=== PATIENT | female | born 1965 | race American Indian/Alaskan Native ===

== ENCOUNTER 2021-05-30 06:39 | Observation (INO) | payer BC ==
[2021-05-30] MEDS ORDERED: SODIUM CHLORIDE 0.9% 500 ML 500 ML IV SCH (07:00)
[2021-05-30 07:31] LABS: Basophils # (Auto) 0.1 K/mm3 (0.0-0.1); Basophils % (Auto) 0.8 % (0.0-1.8); Eosinophils # (Auto) 0.2 K/mm3 (0.0-0.4); Eosinophils % (Auto) 1.9 % (0.0-4.3); Hematocrit 42.4 % (30.3-42.9); Hemoglobin 14.7 gm/dl (10.1-14.3); Lymphocytes # (Auto) 3.1 K/mm3 (1.2-5.4); Lymphocytes % (Auto) 27.2 % (13.4-35.0); Mean Corpuscular HGB Conc 35 % (30-34); Mean Corpuscular Volume 88 fl (79-97); Monocytes % (Auto) 8.5 % (0.0-7.3); Platelet Count 273 K/mm3 (140-440); Red Blood Count 4.84 M/mm3 (3.65-5.03)
[2021-05-30 07:47] LABS: INR 1.06 (0.87-1.13); Partial Thromboplastin Time 34.8 Sec. (24.2-36.6)
[2021-05-30 07:54] LABS: BUN/Creatinine Ratio 11; Blood Urea Nitrogen 10 mg/dL (7-17); Calcium 9.8 mg/dL (8.4-10.2); Hemolysis Index 116
[2021-05-30] MEDS ORDERED: LIDOCAINE (1%) 10 MG/1 ML VIAL 20 ML MDV ONE (08:25)
[2021-05-30] MEDS ORDERED: HEPARIN/NS 5000 UNIT/500ML 1,000 ML IR ONE (08:25)
[2021-05-30] MEDS ORDERED: MIDAZOLAM 5 MG/5 ML INJ MDV IV ONE (08:26)
[2021-05-30] MEDS ORDERED: VERAPAMIL 5 MG/2 ML INJ ONE (08:27)
[2021-05-30] MEDS ORDERED: HEPARIN/NS 5000 UNIT/500ML 500 ML IR ONE (08:37)
[2021-05-30] MEDS: MIDAZOLAM 2 MG/2 ML INJ ONE ×2 (08:55→09:35)
[2021-05-30] MEDS: fentaNYL 100 MCG/2 ML INJ ONE ×2 (08:55→09:35)
[2021-05-30] MEDS: HEPARIN 10,000 UNITS/10 ML VIAL ONE ×2 (09:11→09:30)
[2021-05-30] MEDS ORDERED: TICAGRELOR 90 MG TAB ONE (10:00)
--- NOTE | 2021-05-30 10:48 | Short Stay Summary ---
<LICO BERG - Last Filed: 05/30/21 15:12> Short Stay Documentation Date of service: 05/30/21 - History H&P: obtained from office - Allergies and Medications Current Medications: Allergies No Known Allergies Allergy (Verified 05/30/21 06:57) Home Medications Medication Instructions Recorded Confirmed Last Taken Type Aspirin [Aspirin BABY CHEW TAB] 81 mg PO QDAY 05/30/21 05/30/21 05/30/21 History 0700 AtorvaSTATin [Lipitor] 10 mg PO QHS 05/30/21 05/30/21 05/29/21 History 1 tab Chlorthalidone 50 mg PO DAILY 05/30/21 05/30/21 05/29/21 History 1 tab ISOSORBIDE MONOnitrate [Imdur ER] 30 mg PO DAILY 05/30/21 05/30/21 05/29/21 History 1 tab Omeprazole 40 mg PO DAILY 05/30/21 05/30/21 05/29/21 History 1 tab Potassium Chloride [Klor-Con 8] 20 meq PO QDAY 05/30/21 05/30/21 05/29/21 History 1 tab carvediloL [Coreg] 3.125 mg PO BID 05/30/21 05/30/21 05/29/21 History 2 tab Active Medications Sodium Chloride (Nacl 0.9% 500 Ml) 500 mls @ 50 mls/hr IV DIRECT CAROLYN Stop: 05/30/21 16:59 Last Admin: 05/30/21 08:16 Dose: 50 mls/hr Documented by: - Physical exam Integumentary: other (Right radial access site inspected no bleeding or hematoma noted Telfa Tegaderm in place) - Brief post op/procedure progress note Date of procedure: 05/30/21 Pre-op diagnosis: Unstable angina Post-op diagnosis: other (Coronary artery disease s/p YARELIS stent of LAD) - Disposition Condition at discharge: Good - Discharge Diagnoses (1) Coronary artery disease Status: Acute (2) Stented coronary artery Status: Acute Short Stay Discharge Plan Activity: advance as tolerated Diet: low fat, low cholesterol, low salt Wound: open to air, keep clean and dry, per your surgeon's advice Follow up with: KRISTA BUCK MD [Primary Care Provider] - 7 Days SANDHYA STANLEY MD [Staff Physician] - 7 Days Prescriptions: AtorvaSTATin [Lipitor] 80 mg PO QHS #90 tab Ticagrelor [Brilinta] 90 mg PO BID #180 tablet <HUGO IBRAHIM - Last Filed: 05/31/21 13:06> Short Stay Documentation - Allergies and Medications Current Medications: Allergies No Known Allergies Allergy (Verified 05/30/21 06:57) Home Medications Medication Instructions Recorded Confirmed Last Taken Type Aspirin [Aspirin BABY CHEW TAB] 81 mg PO QDAY 05/30/21 05/30/21 05/30/21 History 0700 AtorvaSTATin [Lipitor] 10 mg PO QHS 05/30/21 05/30/21 05/29/21 History 1 tab AtorvaSTATin [Lipitor] 80 mg PO QHS #90 tab 05/30/21 Unknown Rx Chlorthalidone 50 mg PO DAILY 05/30/21 05/30/21 05/29/21 History 1 tab ISOSORBIDE MONOnitrate [Imdur ER] 30 mg PO DAILY 05/30/21 05/30/21 05/29/21 History 1 tab Omeprazole 40 mg PO DAILY 05/30/21 05/30/21 05/29/21 History 1 tab Potassium Chloride [Klor-Con 8] 20 meq PO QDAY 05/30/21 05/30/21 05/29/21 History 1 tab Ticagrelor [Brilinta] 90 mg PO BID #180 tablet 05/30/21 Unknown Rx carvediloL [Coreg] 3.125 mg PO BID 05/30/21 05/30/21 05/29/21 History 2 tab Active Medications Hydrocodone Bitart/Acetaminophen (Hydrocodone/Acetaminophen 5-325 Mg Tab) 1 each PO Q6H PRN PRN Reason: Pain, Moderate (4-6) Aspirin (Aspirin 81 Mg Tab Chew) 81 mg PO QDAY [facility] Last Admin: 05/31/21 09:34 Dose: 81 mg Documented by: Enoxaparin Sodium (Enoxaparin 40 Mg/0.4 Ml Inj) 40 mg SUB-Q Q12HR [facility] Last Admin: 05/31/21 09:34 Dose: 40 mg Documented by: Morphine Sulfate (Morphine 2 Mg/1 Ml Inj) 2 mg IV Q5MIN PRN PRN Reason: Chest Pain unrelieved by NTG Ticagrelor (Ticagrelor 90 Mg Tab) 90 mg PO BID [facility] Last Admin: 05/31/21 09:34 Dose: 90 mg Documented by: Tramadol HCl (Tramadol 50 Mg Tab) 50 mg PO Q4H PRN PRN Reason: Pain, Mild (1-3)
--- NOTE | 2021-05-30 10:53 | Cardiac Catherization Report ---
DATE OF SERVICE: 05/30/2021 INDICATION: The patient is a 55-year-old female with history of longstanding hypertension with recent onset of angina symptoms with exertion, was started on medication with some improvement in the symptoms, underwent pharmacological stress test, which showed a severe reversible defect in the anteroseptal area, considering her symptoms and severe abnormalities noted on the stress nuclear imaging, the patient was scheduled for cardiac catheterization and possible intervention. The patient is aware of the procedure, potential complications, and alternatives of therapy available. DESCRIPTION OF PROCEDURE: The patient was brought to the catheterization laboratory in a fasting condition. The patient is aware of the procedure, potential complications. The patient was evaluated for moderate sedation and received IV Versed and fentanyl. Subsequently, the patient was prepared in standard fashion. Right radial artery was prepared. Local anesthesia was given in the right wrist area and right radial artery puncture was made using 21-gauge arterial puncture needle. A 5-Swazi slender sheath was used. The patient already received IV Versed and fentanyl for sedation. Received 3000 units of intravenous heparin and 5 mg of intra-arterial verapamil. Subsequently, using 5-Swazi multipurpose catheter, angiograms of the left coronary artery were obtained in multiple views. A left ventriculogram was performed. There is suggestion of significant mitral regurgitation. Hence, a left ventriculogram was performed using pigtail and a power injector. Only mild mitral regurgitation was noted. Subsequently, using JR4 catheter, angiograms of the right coronary artery were obtained. The patient was noted to have severe tight proximal to mid LAD lesion. Hence procedure was converted into the interventional procedure. Following findings were noted on the diagnostic cardiac catheterization. Aortic pressure is 162/91. Left ventricular pressure 162/24. No gradient across the aortic valve. Estimated ejection fraction 55%. Left ventriculogram done in EDMONDS projection using power injector showed normal-sized left ventricle with normal contractility. There is only 1+ mitral regurgitation noted. Ejection fraction was estimated to be 55%. Right coronary artery nondominant vessel,arises normally, is angiographically smooth and normal. Left coronary artery arises normally from left coronary cusp. The left main is very short, immediately dividing into LAD and circumflex branches. LAD in the proximal part shows a very severe lesion, extending into the mid part at the origin of a small to medium size diagonal branch. There is a sluggish flow in the LAD, suggestive of GERBER 2 flow. Except for this proximal/mid LAD lesion, rest of the LAD curving around the apex without significant disease. Diagonal branch itself does not appear to have significant disease. Circumflex artery, codominant vessel with multiple marginal branches shows no significant coronary disease angiographically.Marginal branches appeared to be tortuous, but smooth and normal. COLLATERALS: None. FINAL IMPRESSION: 1. Normal-sized left ventricle with mild mitral regurgitation and severe proximal to mid LAD lesion with sluggish flow suggestive of GERBER 2 flow. Rest of the coronaries without significant disease. Considering her symptomatology and severity of the lesion, it was felt that the patient could benefit from intervention of the LAD. It was converted to interventional procedure. Intervention of the proximal to mid LAD: The patient has indwelling 5-Swazi slender sheath in the right wrist. The patient was given IV heparin as anticoagulant. Extra dose of Versed and fentanyl were given for sedation. Initially, EBU 3.5 guide catheter was advanced and engaged the left coronary artery. However, after advancing the guidewire into the LAD, could not get good support. Hence system was removed and a 6-Swazi JL3.5 guiding catheter was engaged in the left coronary artery. Using a Constantine 0.014 inch guidewire was advanced into the distal LAD without difficulty. Lesion initially was dilated with a 2.75 x 12 mm Euphora balloon up to 8 atmospheres multiple times. Lesion was reduced to 50-60% and GERBER flow improved to GERBER 3. Subsequently, 3.0 x 18 mm Rampart stent was inflated up to 16 atmospheres with very good result. No proximal or distal dissection noted. Lesion was reduced from 98% at the end to 0%. There is no evidence of distal embolization noted. No obvious perforation noted. During the entire procedure, the patient is comfortable without any significant change in her clinical status. No chest pain. EKG showed ST depressions with each inflation. No arrhythmia noted. Final angiogram showed no complication. . The guiding catheter was removed. It is to be noted the patient received IV heparin as anticoagulant and received Brilinta at the end of the procedure. The patient obtained therapeutic ACT at the end of the procedure. Radial sheath will be removed with application of radial band. The patient's vital signs have been stable throughout. The patient was monitored throughout the procedure with a pulse oximetry, EKG monitoring and hemodynamic monitoring. The patient tolerated the procedure well. The patient's sedation started at 8:55 a.m. and ended at 9:57 a.m. At the end of the procedure, the patient is communicating normally, breathing normally with no focal deficits and transferred to the outpatient area. FINAL IMPRESSION: Uncomplicated YARELIS placement in proximal to mid LAD with good result and no complications. It is to be noted there is a medium size diagonal branch that is arising in the area of the lesion. This diagonal branch showed GERBER 3 flow at the end of the procedure with mild narrowing of 30%-40% at the ostium, but GERBER 3 flow is noted and this diagonal branch is widely patent. The patient will be continued on aspirin, Brilinta, and high dose statin. The patient will be monitored overnight in telemetry. TID: [id number] RECEIPT: [id number] IFTIKHAR/LEANA DANIELLE
[2021-05-30] MEDS ORDERED: MORPHINE 2 MG/1 ML INJ IV PRN (10:56)
[2021-05-30] MEDS ORDERED: HYDROcodone/ACETAMINOPHEN 5-325 MG TAB PO PRN (10:56)
[2021-05-30] MEDS ORDERED: traMADol 50 MG TAB PO PRN (10:56)
--- NOTE | 2021-05-30 18:03 | Electrocardiograph Report ---
[facility] Test Date: 2021-05-30 Test Time: 08:24:58 Pat Name: BRYN PERRY Department: Room: A483 Gender: F Clinical Medical Assistant: PAMELLA : 1965 Requested By: ARTHUR COX Order Number: [id number] Reading MD: Bill Jolley Measurements Intervals [place] Rate: 86 P: 60 WI: 200 QRS: 9 QRSD: 91 T: 65 QT: 356 QTc: 427 Interpretive Statements Sinus rhythm Probable left atrial enlargement Anteroseptal infarct, age indeterminate No previous ECG available for comparison Electronically Signed On 05-30-2021 18:03:37 EDT by Bill Jolley
--- NOTE | 2021-05-30 18:05 | Electrocardiograph Report ---
[facility] Test Date: 2021-05-30 Test Time: 10:49:23 Pat Name: BRYN PERRY Department: Room: A483 Gender: F Senior C Software Engineer: PAMELLA : 1965 Requested By: LICO BERG Order Number: [id number] Reading MD: Bill Jolley Measurements Intervals [place] Rate: 84 P: 66 TX: 215 QRS: 7 QRSD: 89 T: 36 QT: 395 QTc: 467 Interpretive Statements Sinus rhythm Prolonged TX interval Abnrm T, consider ischemia, anterolateral lds Compared to ECG 05/30/2021 08:24:58 First degree AV block now present Possible ischemia now present Myocardial infarct finding no longer present Electronically Signed On 05-30-2021 18:04:44 EDT by Bill Jolley
[2021-05-30] MEDS: TICAGRELOR 90 MG TAB PO SCH (22:02)
[2021-05-30] MEDS: ENOXAPARIN 40 MG/0.4 ML INJ SUB-Q SCH (22:02)
[2021-05-31 06:09] LABS: Basophils # (Auto) 0.1 K/mm3 (0.0-0.1); Basophils % (Auto) 0.6 % (0.0-1.8); Eosinophils # (Auto) 0.1 K/mm3 (0.0-0.4); Eosinophils % (Auto) 0.8 % (0.0-4.3); Hematocrit 42.8 % (30.3-42.9); Hemoglobin 14.4 gm/dl (10.1-14.3); Lymphocytes # (Auto) 2.9 K/mm3 (1.2-5.4); Lymphocytes % (Auto) 25.3 % (13.4-35.0); Mean Corpuscular HGB Conc 34 % (30-34); Mean Corpuscular Volume 90 fl (79-97); Monocytes % (Auto) 8.5 % (0.0-7.3); Platelet Count 278 K/mm3 (140-440); Red Blood Count 4.79 M/mm3 (3.65-5.03); Red Cell Distribution Width 14.1 % (13.2-15.2)
[2021-05-31 06:31] LABS: BUN/Creatinine Ratio 9; Blood Urea Nitrogen 7 mg/dL (7-17); Calcium 9.5 mg/dL (8.4-10.2); Hemolysis Index 2
[2021-05-31 07:02] LABS: Chol/HDL Ratio 3.54 %; HDL Cholesterol 42 mg/dL (40-59); LDL Cholesterol,Direct 99 mg/dL (50-130)
--- NOTE | 2021-05-31 08:13 | XRay Report ---
CHEST 1 VIEW INDICATION / CLINICAL INFORMATION: post pci. COMPARISON: None available. FINDINGS: SUPPORT DEVICES: None. HEART / MEDIASTINUM: No significant abnormality. LUNGS / PLEURA: No significant pulmonary or pleural abnormality. No pneumothorax. ADDITIONAL FINDINGS: No significant additional findings. IMPRESSION: 1. No acute findings. Signer Name: Marivel Pham MD Signed: 05/31/2021 8:09 AM Workstation Name: [id number]
[2021-05-31] MEDS: TICAGRELOR 90 MG TAB PO SCH (09:34)
[2021-05-31] MEDS: ENOXAPARIN 40 MG/0.4 ML INJ SUB-Q SCH (09:34)
[2021-05-31] MEDS ORDERED: ASPIRIN 81 MG TAB CHEW PO SCH (10:00)
[2021-05-31 13:30] VITALS: BP 131/75
== END 2021-05-31 16:28 | disposition home or self-care (01) ==
LOC: CATHLABREC 06:39 → 4A 11:00
PROVIDERS: ADMIT Internal Medicine; ATTEND Internal Medicine
DX: I25.10 Atherosclerotic heart disease of native coronary artery without angina pectoris (principal); R94.39 Abnormal result of other cardiovascular function study; I10 Essential (primary) hypertension; R07.89 Other chest pain; Z95.1 Presence of aortocoronary bypass graft; Z79.82 Long term (current) use of aspirin; Z86.39 Personal history of other endocrine, nutritional and metabolic disease; Z87.898 Personal history of other specified conditions
CPT/HCPCS: 36415; 71045; 80048; 80061; 84484; 85025; 85610; 85730; 92928; 93005; 93458; 96372; C1725; C1769; C1874; C1887; C1894; C9600; G0378; J1644; J1650; J2250; J3010; J7040; Q9967